=== PATIENT | male | born 1995 | race Caucasian/White ===

== ENCOUNTER 2018-01-08 12:13 | Emergency (ER) | payer SELFPAY ==
[~2018-01-08] VITALS: Ht 180.3 cm; Wt 113.4 kg
[~2018-01-08 12:13] MED LIST: CYCL10TA9 PO; IBP800T PO; NAPR-243 PO; PRED20TA PO
--- OUTSIDE RECORDS SUMMARY | 2018-01-08 12:18 | XMS REPORT | Continuity of Care Document ---
Author Author [facility] Organization [facility] Address Unknown Phone Unavailable Allergies Active Description Code Type Severity Reaction Onset Reported/Identified Relationship to Patient Clinical Status Yes amoxicillin [id number] Drug Allergy Unknown RASH 03/12/2008 Yes potassium clavulanate [id number] Drug Allergy Unknown RASH 03/12/2008 Medications There is no data. Problems Date Dx Coded Attending Type Code Diagnosis Diagnosed By 11/14/2012 NATHALY GLOVER, QING Velasquez Ot 724.1 PAIN IN THORACIC SPINE 02/11/2013 PRATIMA DEBBIE EDWARDS Ot 276.1 HYPOSMOLALITY 02/11/2013 DEBBIE ANDUJAR DO Ot 786.50 CHEST PAIN NOS 02/11/2013 DEBBIE ANDUJAR DO Ot 786.52 PAINFUL RESPIRATION 02/11/2013 DEBBIE ANDUJAR DO Ot 790.5 ABN SERUM ENZY LEVEL NEC 09/30/2014 HAMILTON LANG Ot 719.41 JOINT PAIN-SHLDER 09/30/2014 HAMILTON LANG Ot 840.9 SPRAIN SHOULDER/ARM NOS 09/30/2014 HAMILTON LANG Ot E000.8 OTHER EXTERNAL CAUSE STATUS 09/30/2014 HAMILTON LANG Ot E928.9 ACCIDENT NOS Procedures There is no data. Results There is no data. Encounters ACCT No. Visit Date/Time Discharge Status Pt. Type Provider Facility Loc./Unit Complaint [id number] 09/30/2014 15:53:00 09/30/2014 16:30:00 DIS Emergency HAMILTON LANG [facility] ER L SHOULDER PAIN [id number] 02/11/2013 20:52:00 02/11/2013 22:56:00 DIS Emergency DEBBIE ANDUJAR DO [facility] ER CHEST PAIN RECENT HX HEART FAILURE [id number] 11/13/2012 19:48:00 11/14/2012 00:11:00 DIS Emergency NATHALY GLOVER, QING Velasquez [facility] ER BACK PAIN [id number] 01/08/2018 12:15:00 ACT Emergency CUAUHTEMOC GLOVER, NATE Kaufman [facility] ER RIGHT SHOULDER AND BACK PAIN [id number] 10/01/2014 05:01:02 ACT Document Registration
[2018-01-08] MEDS ORDERED: ORPHENADRINE 60 MG/2 ML (NORFLEX) AMP IM STA (12:45)
[2018-01-08] MEDS ORDERED: KETOROLAC 60 MG/2 ML VIAL IM STA (12:45)
--- NOTE | 2018-01-08 12:58 | ED Upper Extremity ---
General Chief Complaint: Upper Extremity Stated Complaint: RIGHT SHOULDER AND BACK PAIN Source: patient Exam Limitations: no limitations History of Present Illness Date Seen by Provider: Jan 08, 2018 Time Seen by Provider: 12:40 Initial Comments Here with report of right shoulder area pain and right anterior chest wall. Worse with movement of the shoulder and better with rest. He works at [employer] and does a lot of lifting. Doesn't feel like he did anything out of normal although he does do a lot of lifting. When the pain hits it takes his breath away. This is been going on overnight and early this morning. He has not taken anything for the pain. Onset: this morning Severity: moderate Pain/Injury Location: right shoulder, right other (anterior chest wall) Method of Injury: unknown Modifying Factors: Improves With Immobilization; Worse With Movement; Improves With Rest Allergies and Home Medications Allergies Coded Allergies: Amoxicillin (Verified Allergy, Unknown, RASH, 03/12/08) potassium clavula *RETIRED-03/08/12 (Verified Allergy, Unknown, RASH, 03/12) Home Medications Cyclobenzaprine Hcl 10 Mg Tablet, 1 EACH PO Q8H PRN for SPASMS Prescribed by: HAMILTON ERICKSON on 09/30/141625 Naproxen 500 Mg Tablet, 1 EACH PO BID PRN PRN for PAIN Prescribed by: HAMILTON ERICKSON on 09/30/141625 Prednisone 20 Mg Tablet, 40 MG PO DAILY Prescribed by: HAMILTON ERICKSON on 09/30/141625 Patient Home Medication List Home Medication List Reviewed: Yes Constitutional: see HPI; No chills, No fever Respiratory: see HPI, cough Cardiovascular: no symptoms reported Musculoskeletal: see HPI, muscle pain, muscle stiffness; No muscle weakness, No neck pain Skin: no symptoms reported Psychiatric/Neurological: No Symptoms Reported Past Kcctxuf-Vrgozr-Qknqob Hx Past Med/Social Hx: Reviewed Nursing Past Med/Soc Hx Patient Social History Alcohol Use: Occasionally Uses Alcohol Beverage of Choice: Beer Recreational Drug Use: No Type Used: Cigarettes 2nd Hand Smoke Exposure: No Recent Foreign Travel: No Contact w/Someone Who Travel: No Recent Hopitalizations: Yes (ASTHMA) Past Medical History Surgeries: Yes (RECENT JAW FIXATION FOR FRACTURE-"WIRED SHUT") Respiratory: Yes (PREVIOUS HOSPITALIZATIONS FOR ASTHMA ) Asthma Cardiac: No (DENIES TO ME) Neurological: Yes Gastrointestinal: No Musculoskeletal: Yes ("BACK PAIN", RIGHT SHOULDER DISLOCATION) Fractures Endocrine: No Cancer: No Psychosocial: No Integumentary: No Blood Disorders: No Family Medical History Reviewed Nursing Family Hx No Pertinent Family Hx Physical Exam Vital Signs Vital Signs - First Documented 01/08/18 12:47 Temp 98.9 Pulse 81 Resp 20 B/P (MAP) 126/74 (91) Pulse Ox 98 Capillary Refill : Height, Weight, BMI Height: 6'2" Weight: 170lbs. oz. 77.742943fy; BMI Method:Stated General Appearance: WD/WN, no apparent distress Neck: full range of motion, supple Cardiovascular: regular rate, rhythm, no murmur Respiratory: lungs clear, normal breath sounds Gastrointestinal: non tender, soft Back: normal inspection, no CVA tenderness, no vertebral tenderness Shoulder: No asymmetry, No bone tenderness, No deformity, No ecchymosis; limited ROM (pain related), soft tissue tenderness (anterior chest wall and insertion of tach muscle) Wrist: Yes normal inspection, Yes non-tender Hand: normal inspection, non-tender, no evidence of injury, normal ROM, Bilateral Neurologic/Psychiatric: no motor/sensory deficits, alert, oriented x 3 Skin: normal color, warm/dry Progress/Results/Core Measures Results/Orders My Orders Orders - NATE POSADAS MD Ketorolac Injection (Toradol Injection) (01/08/18 12:45) Orphenadrine Injection (Norflex Injectio (01/08/18 12:45) Chest Pa/Lat (2 View) (01/08/18 12:45) Vital Signs/I&O 01/08/18 12:47 Temp 98.9 Pulse 81 Resp 20 B/P (MAP) 126/74 (91) Pulse Ox 98 Progress Progress Note : Progress Note Seen and evaluated. Two-view chest x-ray ordered. Norflex 60 mg IM and Toradol 60 mg IM ordered. Monitor patient. 1343: Patient done much better. Discharged home with return precautions. Patient verbalize understanding instructions and agreement with plan. Diagnostic Imaging Diagonstic Imaging: Xray Plain Films/CT/US/NM/MRI: chest Comments [facility]. [place], [place] NAME: ADA LIM MED REC#: [id number] PT STATUS: REG ER : 1995 PHYSICIAN: NATE POSADAS MD ADMIT DATE: 01/08/18/ER Draft Date of Exam:01/08/18 CHEST PA/LAT (2 VIEW) Indication: Right upper chest and shoulder pain. Time of exam: 1:38 PM Correlation is made with prior study from 02/11/2013. The lungs are clear. No infiltrates are seen. Pulmonary vascularity is normal. No effusion or pneumothorax is identified. Bony structures are unremarkable. Impression: No acute cardiopulmonary process is detected. Dictated on workstation # [id number] Dict: 01/08/18 1326 Trans: 01/08/18 1329 CV [id number] Interpreted by: SANCHO ALVES MD Electronically signed by: Departure Impression Primary Impression: Muscle strain of right shoulder region Qualified Codes: S46.911A - Strain of unspecified muscle, fascia and tendon at shoulder and upper arm level, right arm, initial encounter Disposition: HOME, SELF-CARE Condition: Improved Departure-Patient Inst. Decision time for Depature: 13:47 Referrals: NO,LOCAL PHYSICIAN (PCP/Family) Primary Care Physician Patient Instructions: Muscle Strain (DC) Add. Discharge Instructions: All discharge instructions reviewed with patient and/or family. Voiced understanding. You may take ibuprofen 800 mg every 8 hours as needed for pain. You may take Tylenol or acetaminophen 1000 mg every 8 hours as needed for pain. Take other medications as prescribed. Follow-up with your Dr. in a few days for recheck. Return for worse pain, fever, vomiting, weakness, breathing problems or other concerns as needed. Scripts Cyclobenzaprine HCl (Cyclobenzaprine HCl) 10 Mg Tablet 10 MG PO Q8H PRN for SPASMS, #15 TAB 0 Refills Prov: NATE POSADAS MD 01/08/18 NATE POSADAS MD Jan 08, 2018 12:58
--- NOTE | 2018-01-08 13:29 | Diagnostic Imaging Report ---
Indication: Right upper chest and shoulder pain. Time of exam: 1:38 PM Correlation is made with prior study from 02/11/2013. The lungs are clear. No infiltrates are seen. Pulmonary vascularity is normal. No effusion or pneumothorax is identified. Bony structures are unremarkable. Impression: No acute cardiopulmonary process is detected. Dictated by: Dictated on workstation # [id number]
[2018-01-08] MEDS ORDERED: CYCL10TA9 PO (13:48)
[2018-01-08 13:52] VITALS: BP 123/74
== END 2018-01-08 13:52 | disposition home or self-care (01) ==
LOC: EDUNIT# 12:13 → ER 12:15
DX: S46.911A Strain of unspecified muscle, fascia and tendon at shoulder and upper arm level, right arm, initial encounter (principal); J45.909 Unspecified asthma, uncomplicated; Z88.1 Allergy status to other antibiotic agents; X50.0XXA Overexertion from strenuous movement or load, initial encounter
CPT/HCPCS: 71046; 96372

== ENCOUNTER 2018-01-19 19:31 | Emergency (ER) | payer SELFPAY ==
[~2018-01-19] VITALS: Ht 188 cm; Wt 74.8 kg
[2018-01-19] MEDS ORDERED: LIDOCAINE 1% INJ 20 ML 20 ML VIAL ONE (19:45)
[2018-01-19] MEDS ORDERED: LIDOCAINE 2% 20 ML (XYLOCAINE) VIAL INJ ONE (19:45)
--- NOTE | 2018-01-19 19:49 | ED Upper Extremity ---
General Chief Complaint: Laceration Stated Complaint: R HAND LAC Source: patient Exam Limitations: no limitations History of Present Illness Date Seen by Provider: Jan 19, 2018 Time Seen by Provider: 19:47 Initial Comments to ER with reports of a laceration to the left hand between the thumb and pointer finger webspace. A karen slipped out from a project he was working out at home and cut him. Tetanus is not up-to-date. Onset: just prior to arrival Pain/Injury Location: left hand Modifying Factors: Worse With Movement Allergies and Home Medications Allergies Coded Allergies: Amoxicillin (Verified Allergy, Unknown, RASH, 03/12/08) potassium clavula *RETIRED-03/08/12 (Verified Allergy, Unknown, RASH, 03/12) Home Medications Cyclobenzaprine HCl 10 Mg Tablet, 10 MG PO Q8H PRN for SPASMS Prescribed by: NATE POSADAS on 01/08/18 1348 Cyclobenzaprine Hcl 10 Mg Tablet, 1 EACH PO Q8H PRN for SPASMS Prescribed by: HAMILTON ERICKSON on 09/30/14 1626 Naproxen 500 Mg Tablet, 1 EACH PO BID PRN PRN for PAIN Prescribed by: HAMILTON ERICKSON on 09/30/14 1626 Prednisone 20 Mg Tablet, 40 MG PO DAILY Prescribed by: HAMILTON ERICKSON on 09/30/14 1626 Patient Home Medication List Home Medication List Reviewed: Yes Constitutional: see HPI EENTM: see HPI Respiratory: no symptoms reported Cardiovascular: no symptoms reported Genitourinary: no symptoms reported Musculoskeletal: see HPI Skin: see HPI Psychiatric/Neurological: No Symptoms Reported Past Nugezij-Gzzivf-Aqhsjx Hx Patient Social History Alcohol Beverage of Choice: Beer Type Used: Cigarettes 2nd Hand Smoke Exposure: No Recent Foreign Travel: No Contact w/Someone Who Travel: No Recent Hopitalizations: Yes (ASTHMA) Past Medical History Surgeries: Yes (RECENT JAW FIXATION FOR FRACTURE-"WIRED SHUT") Respiratory: Yes (PREVIOUS HOSPITALIZATIONS FOR ASTHMA ) Asthma Cardiac: No (DENIES TO ME) Neurological: Yes Gastrointestinal: No Musculoskeletal: Yes ("BACK PAIN", RIGHT SHOULDER DISLOCATION) Fractures Endocrine: No Cancer: No Psychosocial: No Integumentary: No Blood Disorders: No Family Medical History No Pertinent Family Hx Physical Exam Vital Signs Capillary Refill : Height, Weight, BMI Height: 5'11.00" Weight: 250lbs. oz. 113.715481zt; BMI Method:Stated General Appearance: WD/WN, no apparent distress HEENT: PERRL/EOMI, normal ENT inspection Neck: non-tender, full range of motion Respiratory: no respiratory distress, no accessory muscle use Gastrointestinal: normal bowel sounds, non tender Shoulder: normal inspection, non-tender Elbow/Forearm: normal inspection, non-tender Hand: Left, laceration (2 cm laceration to the webspace between the thumb and the pointer finger. Neurovascular structures are visible and without injury. Distally sensation and capillary refill intact.) Neurologic/Psychiatric: alert, normal mood/affect, oriented x 3 Skin: normal color, warm/dry Progress/Results/Core Measures Results/Orders My Orders Orders - NURIA MENDOZA APRN Lidocaine 2% Injection 20 Ml (Xylocaine (01/19/18 19:45) Departure Impression Primary Impression: Hand laceration Disposition: 01 HOME, SELF-CARE Condition: Stable Departure-Patient Inst. Decision time for Depature: 19:48 Referrals: NO,LOCAL PHYSICIAN (PCP/Family) Primary Care Physician Patient Instructions: Laceration Repair With Stitches (DC) Add. Discharge Instructions: 1. Return to ER to have the stitches removed in 10 days. Take antibiotic since directed. Return to ER for any concerns such as redness or swelling You may let water run over this starting tomorrow but do not soak it in water such as a hot tub, bath tub or swimming pool until stitches of been removed.All discharge instructions reviewed with patient and/or family. Voiced understanding. NURIA MENDOZA APRN Jan 19, 2018 19:49
[2018-01-19] MEDS ORDERED: RX-CEPHALEXIN (KEFLEX) 250 MG CAP PPK#4 PO ONE (20:08)
[2018-01-19] MEDS ORDERED: RX-CEPHALEXIN (KEFLEX) 250 MG CAP PPK#4 PO STA (20:09)
[2018-01-19] MEDS ORDERED: TETANUS,DIPTH,PERTUSS P/F (BOOSTRIX) 0.5 ML VIAL IM ONE ×2 (20:10→20:15)
[2018-01-19 20:18] VITALS: BP 117/64
== END 2018-01-19 20:15 | disposition home or self-care (01) ==
LOC: EDUNIT# 19:31 → ER 19:33
DX: S61.012A Laceration without foreign body of left thumb without damage to nail, initial encounter (principal); J45.909 Unspecified asthma, uncomplicated; Z88.1 Allergy status to other antibiotic agents; Z88.8 Allergy status to other drugs, medicaments and biological substances; Z79.52 Long term (current) use of systemic steroids; W27.8XXA Contact with other nonpowered hand tool, initial encounter
CPT/HCPCS: 90471; 90715

== ENCOUNTER 2018-01-29 10:40 | Emergency (ER) | payer SELFPAY ==
[~2018-01-29] VITALS: Ht 188 cm; Wt 74.8 kg
--- OUTSIDE RECORDS SUMMARY | 2018-01-29 10:47 | XMS REPORT | Continuity of Care Document ---
Author Author [facility] Organization [facility] Address Unknown Phone Unavailable Allergies Active Description Code Type Severity Reaction Onset Reported/Identified Relationship to Patient Clinical Status Yes amoxicillin [id number] Drug Allergy Unknown RASH 03/12/2008 Yes potassium clavulanate [id number] Drug Allergy Unknown RASH 03/12/2008 Medications There is no data. Problems Date Dx Coded Attending Type Code Diagnosis Diagnosed By 11/14/2012 NATHALY GLOVER, QING Velasquez Ot 724.1 PAIN IN THORACIC SPINE 02/11/2013 BONE GAP DEBBIE EDWARDS Ot 276.1 HYPOSMOLALITY 02/11/2013 DEBBIE ANDUJAR DO Ot 786.50 CHEST PAIN NOS 02/11/2013 PRATIMA DEBBIE EDWARDS Ot 786.52 PAINFUL RESPIRATION 02/11/2013 PRATIMA DEBBIE EDWARDS Ot 790.5 ABN SERUM ENZY LEVEL NEC 09/30/2014 HAMILTON LANG Ot 719.41 JOINT PAIN-SHLDER 09/30/2014 HAMILTON LANG Ot 840.9 SPRAIN SHOULDER/ARM NOS 09/30/2014 HAMILTON LANG Ot E000.8 OTHER EXTERNAL CAUSE STATUS 09/30/2014 HAMILTON LANG Ot E928.9 ACCIDENT NOS 01/10/2018 NATE POSADAS MD Ot J45.909 UNSPECIFIED ASTHMA, UNCOMPLICATED 01/10/2018 NATE POSADAS MD, Ot M25.511 PAIN IN RIGHT SHOULDER 01/10/2018 NATE POSADAS MD Ot S46.911A STRAIN UNSP MUSC/FASC/TEND AT LDR/UP A 01/10/2018 NATE POSADAS MD Ot X50.0XXA OVEREXERTION FROM STRENUOUS MOVEMENT OR 01/10/2018 NATE POSADAS MD Ot Z88.1 ALLERGY STATUS TO OTHER ANTIBIOTIC AGENT Procedures There is no data. Results There is no data. Encounters ACCT No. Visit Date/Time Discharge Status Pt. Type Provider Facility Loc./Unit Complaint [id number] 01/19/2018 19:33:00 01/19/2018 20:15:00 DIS Emergency NURIA MENDOZA APRN [facility] ER R HAND LAC [id number] 01/08/2018 12:15:00 01/08/2018 13:52:00 DIS Outpatient CUAUHTEMOC GLOVER, NATE Kaufman [facility] ER RIGHT SHOULDER AND BACK PAIN [id number] 09/30/2014 15:53:00 09/30/2014 16:30:00 DIS Emergency HAMILTON LANG [facility] ER L SHOULDER PAIN [id number] 02/11/2013 20:52:00 02/11/2013 22:56:00 DIS Emergency DEBBIE ANDUJAR DO [facility] ER CHEST PAIN RECENT HX HEART FAILURE [id number] 11/13/2012 19:48:00 11/14/2012 00:11:00 DIS Emergency NATHALY GLOVER, QING Velasquez [facility] ER BACK PAIN [id number] 10/01/2014 05:01:02 ACT Document Registration
[2018-01-29 10:55] VITALS: BP 116/60
== END 2018-01-29 10:55 | disposition home or self-care (01) ==
LOC: EDUNIT# 10:40 → ER 10:43
DX: S61.011D Laceration without foreign body of right thumb without damage to nail, subsequent encounter (principal); X58.XXXD Exposure to other specified factors, subsequent encounter